=== PATIENT | female | born 1975 | race American Indian/Alaskan Native ===

== ENCOUNTER 2017-10-30 09:45 | Emergency (ER) | payer OTHER ==
[2017-10-30] MEDS ORDERED: CATAPRES PO ONE (10:39)
[2017-10-30] MEDS ORDERED: MOTRIN PO ONE (10:39)
[2017-10-30] MEDS ORDERED: NORCO 7.5/325 PO ONE (10:39)
--- NOTE | 2017-10-30 10:41 | Emergency Department Report ---
Blank Doc - Documentation Documentation: Patient is a 42-year-old female who states she's been taking her blood pressure medicines as prescribed however she's developed over the last 24 hours of severe headache. Patient has blood pressure is elevated to approximately 200 systolic. Patient states she's never had a headache of this magnitude. Patient denies any chest pain nausea vomiting or focal neurological deficits. Patie will be given meds to decrease her blood pressure patient will have a head CT to rule out IC bleeding
--- NOTE | 2017-10-30 12:47 | Cat Scan Report ---
CRANIAL CT SCAN: Hypertensive headache. Serial contiguous axial images were obtained through the cranium. Intravenous contrast material was not administered. The ventricles are normal in size and appearance. There is no mass effect or midline shift. No areas of abnormally increased or decreased attenuation are seen. No mass lesion is seen. The mastoid air cells and visualized portions of the sinuses are normal. IMPRESSION: Cranial CT scan within normal limits.
--- NOTE | 2017-10-30 14:07 | Emergency Department Report ---
ED Headache HPI - General Chief Complaint: Headache Stated Complaint: HEADACHE Time Seen by Provider: 10/30/17 10:36 - History of Present Illness Initial Comments: This is a 42-year-old female nontoxic, well nourished in appearance, no acute signs of distress presents to the ED with c/o of acute headache. Patient describes headache as diffuse with level of 3 out of 10. Patient denies thunderclap headache. Patient denies any radiation of pain. Patient denies any head trauma. Patient denies any visual changes. Patient denies worse headache. Patient stated that darkness makes headache better and bright lights make the headache worse. Patient denies any numbness, tingling, fever, chills, nausea, vomiting, chest pain, shortness of breath, stiff neck. Patient denies any radiation of pain. Patient denies any allergies. Past medical history includes hypertension best the patient has been out of her medication that she takes lisinopril 20 mg daily. Timing/Duration: episodic Quality: mild Head Injury Location: other (diffuse) Recent Head Trauma: occasional headaches Associated Symptoms: denies symptoms. denies: confusion, fatigue, facial pain, fever/chills, flushing, loss of consciousness, nausea/vomiting, nasal congestion , nasal drainage, numbness in legs/feet, rash, seizures, sinus infection, stiff neck, vision changes, weakness Allergies/Adverse Reactions: Allergies No Known Allergies Allergy (Unverified 10/30/17 09:54) Home Medications: Ambulatory Orders Butalb/Acetamin/Caff 50-325-40 [Fioricet] 1 tab PO Q6HR PRN #12 tab 10/30/17 Lisinopril 20 mg PO DAILY #30 tablet 10/30/17 ED Review of Systems ROS: Stated complaint: HEADACHE Other details as noted in HPI Constitutional: denies: chills, fever Eyes: denies: eye pain, eye discharge, vision change ENT: denies: ear pain, throat pain Respiratory: denies: cough, shortness of breath, wheezing Cardiovascular: denies: chest pain, palpitations Endocrine: no symptoms reported Gastrointestinal: denies: abdominal pain, nausea, diarrhea Genitourinary: denies: urgency, dysuria, discharge Musculoskeletal: denies: back pain, joint swelling, arthralgia Skin: denies: rash, lesions Neurological: headache. denies: weakness, paresthesias Psychiatric: denies: anxiety, depression Hematological/Lymphatic: denies: easy bleeding, easy bruising ED Past Medical Hx - Past Medical History Hx Hypertension: Yes - Surgical History Past Surgical History?: Yes Additional Surgical History: , FIBROIDS REMOVED - Social History Smoking Status: Never Smoker Substance Use Type: None - Medications Home Medications: Home Medications Medication Instructions Recorded Confirmed Last Taken Type Butalb/Acetamin/Caff 50-325-40 1 tab PO Q6HR PRN #12 tab 10/30/17 Unknown Rx [Fioricet] Lisinopril 20 mg PO DAILY #30 tablet 10/30/17 Unknown Rx ED Physical Exam - General Limitations: No Limitations General appearance: alert, in no apparent distress - Head Head exam: Present: atraumatic, normocephalic - Eye Eye exam: Present: normal appearance - ENT ENT exam: Present: normal exam, mucous membranes moist - Neck Neck exam: Present: normal inspection, full ROM. Absent: tenderness, meningismus, lymphadenopathy - Respiratory Respiratory exam: Present: normal lung sounds bilaterally. Absent: respiratory distress - Cardiovascular Cardiovascular Exam: Present: regular rate, normal rhythm, normal heart sounds. Absent: irregular rhythm, systolic murmur, diastolic murmur, rubs, gallop - GI/Abdominal GI/Abdominal exam: Present: soft, normal bowel sounds. Absent: distended, tenderness, guarding, rebound, rigid, diminished bowel sounds - Extremities Exam Extremities exam: Present: normal inspection, full ROM, normal capillary refill. Absent: tenderness - Back Exam Back exam: Present: normal inspection, full ROM. Absent: tenderness, CVA tenderness (R), CVA tenderness (L), muscle spasm, paraspinal tenderness, vertebral tenderness, rash noted - Neurological Exam Neurological exam: Present: alert, oriented X3, CN II-XII intact, normal gait - Expanded Neurological Exam Expanded Patient oriented to: Present: person, place, time Cranial nerves: EOM's Intact: Normal, Gag Reflex: Normal, Facial Sensation: Normal Cerebellar function: Finger to Nose: Normal Upper motor neuron: Pronator Drift: Normal, Sensory Extinction: Normal Sensory exam: Upper Extremity Light Touch: Normal, Upper Extremity Pin Prick: Normal, Upper Extremity Temperature: Normal, UE 2 Point Discrimination: Normal, Lower Extremity Light Touch: Normal, Lower Extremity Pin Prick: Normal, Lower Extremity Temperature: Normal, LE 2 Point Discrimination: Normal Motor strength exam: RUE: 5, LUE: 5, RLE: 5, LLE: 5 Best Eye Response ([place]): (4) open spontaneously Best Motor Response ([place]): (6) obeys commands Best Verbal Response ([place]): (5) oriented [place] Total: 15 - Psychiatric Psychiatric exam: Present: normal affect, normal mood - Skin Skin exam: Present: warm, dry, intact, normal color. Absent: rash ED Course Vital Signs 10/30/17 10/30/17 10/30/17 09:54 10:52 10:53 Temperature 98.2 F Pulse Rate 92 H Respiratory 17 Rate Blood Pressure 195/117 169/110 Blood Pressure 169/110 [Left] O2 Sat by Pulse 100 Oximetry 10/30/17 10/30/17 10/30/17 10:54 10:55 11:54 Temperature Pulse Rate Respiratory 18 18 18 Rate Blood Pressure Blood Pressure [Left] O2 Sat by Pulse Oximetry 10/30/17 12:06 Temperature Pulse Rate 72 Respiratory 18 Rate Blood Pressure Blood Pressure 132/94 [Left] O2 Sat by Pulse 98 Oximetry - Reevaluation(s) Reevaluation #1: 10/30/17 14:09 Patient is speaking in full sentences with no signs of distress noted. - Consultations Consultation #1: 10/30/17 14:09 Patient has been consulted with Nikole Melton about patient history, physical exam, and ct and examined and screened patient and agrees to ED plan of care and discharge plan of care. ED Medical Decision Making - Medical Decision Making This is a 42-year-old female that presents with headache and HTN. Patient is stable and was examined by me and Dr. Alvarado. Patient is neurologically stable. There is no stiff neck or neck pain. CT of head obtained and dictated by the radiologist. Vital signs are stable. Patient is afebrile. Patient received catapres and pain meds. Patient was instructed not to operate any machinery after discharged due to drowsiness of [place]. Patient stated that a family member will drive patient home. Patient is discharged with Fioricet. Patient was referred to Follow-up with a primary care/neurologist doctor in 3-5 days or if symptoms worsen and continue return to emergency room as soon as possible. At time of discharge, the patient does not seem toxic or ill in appearance. No acute signs of distress noted. Patient agrees to discharge treatment plan of care. No further questions noted by the patient. Critical care attestation.: If time is entered above; I have spent that time in minutes in the direct care of this critically ill patient, excluding procedure time. ED Disposition Clinical Impression: HTN (hypertension) Qualifiers: Hypertension type: unspecified Qualified Code(s): I10 - Essential (primary) hypertension Headache Qualifiers: Headache type: unspecified Headache chronicity pattern: episodic headache Intractability: not intractable Qualified Code(s): R51 - Headache Disposition: DC-01 TO HOME OR SELFCARE Is pt being admited?: No Does the pt Need Aspirin: No Condition: Stable Instructions: Hypertension (ED), Acute Headache (ED) Additional Instructions: Follow-up with a primary care doctor in 3-5 days or if symptoms worsen and continue return to emergency room as soon as possible. Keep a daily diary of her blood pressure and presented to probably About. Prescriptions: Butalb/Acetamin/Caff 50-325-40 [Fioricet] 1 tab PO Q6HR PRN #12 tab PRN Reason: Headache Lisinopril 20 mg PO DAILY #30 tablet Referrals: PRIMARY CARE, [Primary Care Provider] - 3-5 Days KELSEY ALVAREZ MD [Staff Physician] - 3-5 Days [facility] [Outside] - 3-5 Days [facility] [Outside] - 3-5 Days Forms: Work/School Release Form(ED)
[2017-10-30 14:23] VITALS: BP 168/96
== END 2017-10-30 14:22 | disposition home or self-care (01) ==
LOC: ED 09:45
DX: I10 Essential (primary) hypertension (principal)
CPT/HCPCS: 70450

== ENCOUNTER 2021-01-08 12:59 | Emergency (ER) | payer SELFPAY ==
[2021-01-08] MEDS ORDERED: cloNIDine 0.2 MG TAB PO ONE (14:10)
[2021-01-08] MEDS ORDERED: ACETAMINOPHEN 325 MG TAB PO ONE (14:11)
--- NOTE | 2021-01-08 14:13 | Emergency Department Report ---
<SIDDHARTH FONSECA - Last Filed: 01/08/21 16:26> ED General Adult HPI - General Stated complaint: HEADACHE/HBP PUI?: No Time Seen by Provider: 01/08/21 14:08 - History of Present Illness Initial comments: 45-year-old -[place] female presents to the emergency room complaining of a headache for about 3 to 4 days. Patient states that the headache is located frontal and on the sides. She denies any change in vision but does admit to nausea no vomiting. Patient states that she has been taking her lisinopril 20 mg daily but feels is not enough. Patient states she has been taking Excedrin Migraine without much relief. Patient says nothing makes it worse and medication will help some but continues to come back. Patient does admit she has a history of hypertension and is in need of a new primary care provider. Patient's vital signs in triage was blood pressure 178/118 heart rate 98 temp 97.9 and satting at 100%. Onset/Timin -: days(s) Severity scale (0 -10): 9 Quality: stabbing, aching Consistency: constant Improves with: none Worsens with: none Associated Symptoms: headaches, nausea/vomiting. denies: chest pain, cough, loss of appetite, shortness of breath Treatments Prior to Arrival: none - Related Data Previous Rx's Medication Instructions Recorded Last Taken Type Butalb/Acetamin/Caff 50-325-40 1 tab PO Q6HR PRN #12 tab 10/30/17 Unknown Rx [Fioricet] lisinopriL [Lisinopril] 20 mg PO DAILY #30 tablet 10/30/17 Unknown Rx amLODIPine 10 mg PO DAILY #30 tab 01/08/21 Unknown Rx Allergies Allergy/AdvReac Type Severity Reaction Status Date / Time No Known Allergies Allergy Unverified 10/30/17 09:54 ED Review of Systems Comment: All other systems reviewed and negative ED Past Medical Hx - Past Medical History Hx Hypertension: Yes - Surgical History Additional Surgical History: , FIBROIDS REMOVED - Social History Smoking Status: Never Smoker Substance Use Type: None - Medications Home Medications: Home Medications Medication Instructions Recorded Confirmed Last Taken Type Butalb/Acetamin/Caff 50-325-40 1 tab PO Q6HR PRN #12 tab 10/30/17 Unknown Rx [Fioricet] lisinopriL [Lisinopril] 20 mg PO DAILY #30 tablet 10/30/17 Unknown Rx amLODIPine 10 mg PO DAILY #30 tab 01/08/21 Unknown Rx ED Physical Exam - General General appearance: alert, in no apparent distress - Head Head exam: Present: atraumatic, normocephalic - Eye Eye exam: Present: normal appearance - ENT ENT exam: Present: mucous membranes moist - Neck Neck exam: Present: full ROM - Respiratory Respiratory exam: Present: normal lung sounds bilaterally. Absent: respiratory distress - Cardiovascular Cardiovascular Exam: Present: tachycardia - Extremities Exam Extremities exam: Present: normal inspection, full ROM - Back Exam Back exam: Present: normal inspection - Neurological Exam Neurological exam: Present: alert, oriented X3, normal gait - Psychiatric Psychiatric exam: Present: normal affect, normal mood - Skin Skin exam: Present: warm, dry, intact, normal color. Absent: rash ED Medical Decision Making - Lab Data Result diagrams: 01/08/21 14:53 01/08/21 14:53 - Medical Decision Making 45-year-old -[place] female presents to the emergency room complaining of a headache for about 3 to 4 days. Patient states that the headache is located frontal and on the sides. She denies any change in vision but does admit to nausea no vomiting. Patient states that she has been taking her lisinopril 20 mg daily but feels is not enough. Patient states she has been taking Excedrin Migraine without much relief. Patient says nothing makes it worse and medication will help some but continues to come back. Patient does admit she has a history of hypertension and is in need of a new primary care provider. Patient's vital signs in triage was blood pressure 178/118 heart rate 98 temp 97.9 and satting at 100%. Patient has been ordered CBC CMP and added a TSH as patient does admit that she has had some weight loss. Concern for hyperthyroidism. Also order clonidine 0.2 mg and acetaminophen 975 mg. Patient be reassessed and an hour to see if there is any improvement. ED Disposition Clinical Impression: Hypertension, uncontrolled Disposition: HOME / SELF CARE / HOMELESS Is pt being admited?: No Does the pt Need Aspirin: No Condition: Stable Instructions: Hypertension, Adult, [id number], Hypertension (ED) Additional Instructions: Please take medication as prescribed. Please continue with your lisinopril as prescribed. I would like for you to follow-up with a primary care provider and referring you to 1 below for your convenience. You can take Tylenol or ibuprofen as needed for pain. Be sure to increase your water intake. Prescriptions: amLODIPine 10 mg PO DAILY #30 tab Referrals: PRIMARY MD [place] [Primary Care Provider] - 3-5 Days ISABELL MEDRANO MD [Staff Physician] - 3-5 Days Forms: Work/School Release Form(ED) <AKUA BRISCOE - Last Filed: 01/09/21 07:44> ED Review of Systems ROS: Stated complaint: HEADACHE/HBP Other details as noted in HPI ED Course Vital Signs 01/08/21 01/08/21 01/08/21 13:45 13:46 14:01 Temperature 98.7 F 98.5 F Pulse Rate 93 H 97 H Respiratory 18 18 Rate Blood Pressure 191/121 Blood Pressure [Left] O2 Sat by Pulse 99 100 Oximetry 01/08/21 01/08/21 01/08/21 14:10 15:00 16:34 Temperature Pulse Rate 88 83 86 Respiratory 16 18 Rate Blood Pressure 182/114 141/98 Blood Pressure 178/110 [Left] O2 Sat by Pulse 98 100 Oximetry 01/08/21 01/08/21 16:37 16:53 Temperature 98.0 F Pulse Rate 87 Respiratory 16 Rate Blood Pressure Blood Pressure 158/108 148/100 [Left] O2 Sat by Pulse 98 Oximetry ED Medical Decision Making - Lab Data Result diagrams: 01/08/21 14:53 01/08/21 14:53 Critical care attestation.: If time is entered above; I have spent that time in minutes in the direct care of this critically ill patient, excluding procedure time. ED Disposition Is pt being admited?: No
[2021-01-08 15:06] LABS: Basophils # (Auto) 0.1 K/mm3 (0.0-0.1); Basophils % (Auto) 0.9 % (0.0-1.8); Eosinophils % (Auto) 0.9 % (0.0-4.3); Hemoglobin 15.1 gm/dl (10.1-14.3); Lymphocytes # (Auto) 1.9 K/mm3 (1.2-5.4); Lymphocytes % (Auto) 34.8 % (13.4-35.0); Mean Corpuscular HGB Conc 34 % (30-34); Mean Corpuscular Volume 90 fl (79-97); Monocytes # (Auto) 0.6 K/mm3 (0.0-0.8); Monocytes % (Auto) 10.2 % (0.0-7.3); Platelet Count 313 K/mm3 (140-440); Red Blood Count 4.89 M/mm3 (3.65-5.03); Red Cell Distribution Width 13.3 % (13.2-15.2)
[2021-01-08 15:22] LABS: Alanine Aminotransferase 12 units/L (7-56); Albumin 4.8 g/dL (3.9-5); BUN/Creatinine Ratio 11; Blood Urea Nitrogen 9 mg/dL (7-17); Calcium 10.4 mg/dL (8.4-10.2); Hemolysis Index 17
[2021-01-08 16:54] VITALS: BP 148/100
== END 2021-01-08 16:53 | disposition home or self-care (01) ==
LOC: ED 12:59
DX: I10 Essential (primary) hypertension (principal); Z98.890 Other specified postprocedural states
CPT/HCPCS: 36415; 80053; 84443; 85025; 99283